=== PATIENT | female | born 1940 | race Caucasian/White ===

== ENCOUNTER → 2017-04-02 | Day surgery (SDC) | payer MEDICARE, BC ==
[~2017-04-02] MED LIST: CETACAINE SPRAY 20GM (FLOOR STOCK) As Ordered ONE; CETACAINE SPRAY 20GM (FLOOR STOCK) TOP ONE; CORE25TA PO; LASI40TA PO; LISI10TA4 PO; MIDAZOLAM INJ 2 MG/2 ML VIAL (J2250) As Ordered ONE; NITR4TASL SL; SPIR25TA2 PO; ZOCO10TA PO; fentaNYL 100 MCG/2 ML INJECTION (J3010) As Ordered ONE
--- NOTE | 2017-04-02 15:28 | T-ECHO ---
DATE OF PROCEDURE: 04/02/2017 PREOPERATIVE DIAGNOSIS: Nonrheumatic aortic valve disease with technically difficult echocardiogram Doppler images on transthoracic echocardiogram. Severe aortic regurgitation. POSTPROCEDURE DIAGNOSIS: Severe aortic regurgitation, nonrheumatic aortic valve disease (mild to moderate aortic valve sclerosis). 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 FINDINGS: Principle findings include mild to moderate aortic valve sclerosis with severe aortic regurgitation, moderate mitral regurgitation, aortic regurgitation vena contract of 11.5 mm. Mild dilatation of the ascending thoracic aorta 4.4 cm. Normal LV systolic function. Presence of endocardial right atrial, coronary sinus, and right ventricle cardiac rhythm management leads. PROCEDURE PERFORMED: Transesophageal echocardiogram. No saline contrast. SURGEON: DR. Db Cohen MD [employer]: None. ANESTHESIA: Light conscious sedation was performed per JUANIS STEVENSON with use of IV propofol. COMPLICATIONS: None. DESCRIPTION OF PROCEDURE: The patient received topical Cetacaine spray to the back of the pharynx. After receiving adequate sedation with IV propofol, the patient was successfully esophageal intubation by Dr. Cohen with a Tanmay Face-Ray two dimensional multiplane transesophageal echocardiogram probe. Rhythm was probably AV sequential by ventricular paced rhythm. The left ventricle appeared normal in size and systolic function without any evidence regional wall motion abnormalities. LVEF of 60% by visual estimate. Right ventricle appeared normal in size and systolic function. The left atrium appeared enlarged. Pulmonary vein flow in the left upper pulmonary vein was normal. No mass or thrombi were seen within the atria or their appendages other than the presence of the cardiac rhythm management leads coursing via the right atrium. Atrial septum appeared intact anatomically. Aortic valve with three-cuspid and had mild to moderate focal thickening and minor focal calcific deposits. 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 This resulted in the presence of severe aortic valve regurgitation. The aortic regurgitation vena contracta measures 11.5 mm consistent with severe aortic regurgitation. Mitral leaflets appeared structurally normal. Presence of moderate mitral regurgitation. No mitral valve prolapse. No failed segments of the mitral leaflets. No mass or regurgitations on any of the cardiac valves. Pulmonary valve was only moderately visualized but appeared normal. Tricuspid leaflets appeared structurally normal. No tricuspid regurgitation could be seen but imaging was suboptimal for that assessment. No pericardial effusion. Distal aortic arch and descending thoracic aorta showed mild plaque. CONCLUSIONS: 1. 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 Resultant severe aortic valve regurgitation with aortic regurgitation vena contracta measuring 11.5 mm. 2. Moderate mitral regurgitation with probably structurally normal mitral leaflets. 3. Mild dilatation of the proximal ascending aorta tubular portion (4.4 cm.). Normal diameter of the aortic root at the level of the sinus of Valsalva (3.2 cm). LVOT dimension 2.1 cm. 4. Normal LV size and systolic function. No apparent regional wall motion abnormalities. 5. Presence of cardiac rhythm management leads in the right atrium, coronary sinus and IC lead in the right ventricle coursing towards the RV apex. 6. Mild plaque in the distal aortic arch and descending thoracic aorta. cc: Lisbeth Vila MD
[2017-04-02 15:30] VITALS: BP 160/74
== END | disposition home or self-care (01) ==
LOC: M SDC 12:08
PROVIDERS: ATTEND Internal Medicine Cardiovascular Disease
DX: I35.1 Nonrheumatic aortic (valve) insufficiency (principal); I35.8 Other nonrheumatic aortic valve disorders; I34.0 Nonrheumatic mitral (valve) insufficiency; I77.819 Aortic ectasia, unspecified site; I70.0 Atherosclerosis of aorta; I50.9 Heart failure, unspecified; I11.0 Hypertensive heart disease with heart failure; I44.7 Left bundle-branch block, unspecified; Z95.0 Presence of cardiac pacemaker; Z79.899 Other long term (current) drug therapy
CPT/HCPCS: 93312; 93320; 93325; J2250; J3010